=== PATIENT | female | born 1950 | race Caucasian/White ===

== ENCOUNTER 2016-05-29 19:45 | Emergency (ER) | payer MEDICARE ==
[~2016-05-29 19:45] MED LIST: LEVAQUIN500 MG PO; PYRIDIUM100 MG PO
[2016-05-29 20:07] LABS: HEMOGLOBIN 13.5 gm/dl (12.3-15.3); RED BLOOD COUNT 4.63 M/UL (4.00-5.10); WHITE BLOOD COUNT 15.9 K/UL (4.5-11.0)
[2016-05-29 21:31] LABS: BUN/CREATININE RATIO 33 (0-10)
[2016-12-15] MEDS ORDERED: SYNTHROID150 MCG PO (14:19)
[2016-12-15] MEDS ORDERED: LIORESAL TAB 1010 MG PO (14:20)
[2016-12-15] MEDS ORDERED: PROTONIX40 MG PO (14:20)
[2016-12-15] MEDS ORDERED: NAPROXEN500 MG PO (14:21)
[2016-12-15] MEDS ORDERED: DULOXETINE HCL30 MG PO (14:22)
[2016-12-15] MEDS ORDERED: DICYCLOMINE HCL20 MG PO (14:23)
[2016-12-15] MEDS ORDERED: PHENERGAN 12.12.5 M1 PO (14:24)
[2016-12-17] MEDS ORDERED: KEFLEX CAP 500500 MG PO (11:12)
[2016-12-17] MEDS ORDERED: NYSTATIN1 EAC1 PO ×2 (11:13→11:17)
== END 2016-05-30 05:00 | disposition home or self-care (01) ==
LOC: ER1 19:45
PROVIDERS: Student in an Organized Health Care Education/Training Program
DX: J44.1 Chronic obstructive pulmonary disease with (acute) exacerbation (principal); N39.0 Urinary tract infection, site not specified; R11.2 Nausea with vomiting, unspecified; J45.909 Unspecified asthma, uncomplicated; E66.9 Obesity, unspecified; F17.210 Nicotine dependence, cigarettes, uncomplicated; Z88.5 Allergy status to narcotic agent; Z90.49 Acquired absence of other specified parts of digestive tract; Z99.81 Dependence on supplemental oxygen; Z79.899 Other long term (current) drug therapy
CPT/HCPCS: 36415; 71010; 80053; 81001; 82550; 82553; 83605; 83690; 83874; 83880; 84484; 85025; 87040; 87086; 93005; 94664; 96361; 96365; 96375; 96376; 99285; J0696; J2405; J2550; J7030; J7040; J7050; Q9962

== ENCOUNTER 2016-08-06 02:00 | Emergency (ER) | payer MEDICARE ==
[2016-08-06 03:03] LABS: HEMOGLOBIN 13.2 gm/dl (12.3-15.3); RED BLOOD COUNT 4.63 M/UL (4.00-5.10); WHITE BLOOD COUNT 8.5 K/UL (4.5-11.0)
[2016-08-06 03:25] LABS: BUN/CREATININE RATIO 22 (0-10)
[2016-12-15] MEDS ORDERED: SYNTHROID150 MCG PO (14:19)
[2016-12-15] MEDS ORDERED: PROTONIX40 MG PO (14:20)
[2016-12-15] MEDS ORDERED: LIORESAL TAB 1010 MG PO (14:20)
[2016-12-15] MEDS ORDERED: NAPROXEN500 MG PO (14:21)
[2016-12-15] MEDS ORDERED: DULOXETINE HCL30 MG PO (14:22)
[2016-12-15] MEDS ORDERED: DICYCLOMINE HCL20 MG PO (14:23)
[2016-12-15] MEDS ORDERED: PHENERGAN 12.12.5 M1 PO (14:24)
[2016-12-17] MEDS ORDERED: KEFLEX CAP 500500 MG PO (11:12)
[2016-12-17] MEDS ORDERED: NYSTATIN1 EAC1 PO ×2 (11:13→11:17)
== END 2016-08-06 07:25 | disposition home or self-care (01) ==
LOC: ER1 02:00
PROVIDERS: Student in an Organized Health Care Education/Training Program
DX: J44.0 Chronic obstructive pulmonary disease with (acute) lower respiratory infection (principal); J20.9 Acute bronchitis, unspecified; F17.210 Nicotine dependence, cigarettes, uncomplicated; E03.9 Hypothyroidism, unspecified; Z88.5 Allergy status to narcotic agent; Z90.49 Acquired absence of other specified parts of digestive tract
CPT/HCPCS: 36415; 71010; 80053; 82550; 82553; 83874; 83880; 84484; 85025; 85379; 93005; 94664; 99284

== ENCOUNTER 2016-08-25 17:42 | Emergency (ER) | payer MEDICARE ==
[2016-08-25 20:36] LABS: HEMOGLOBIN 13.3 gm/dl (12.3-15.3); RED BLOOD COUNT 4.7 M/UL (4.00-5.10); WHITE BLOOD COUNT 9.9 K/UL (4.5-11.0)
[2016-08-25 21:50] LABS: BUN/CREATININE RATIO 24 (0-10)
[2016-12-15] MEDS ORDERED: SYNTHROID150 MCG PO (14:19)
[2016-12-15] MEDS ORDERED: LIORESAL TAB 1010 MG PO (14:20)
[2016-12-15] MEDS ORDERED: PROTONIX40 MG PO (14:20)
[2016-12-15] MEDS ORDERED: NAPROXEN500 MG PO (14:21)
[2016-12-15] MEDS ORDERED: DULOXETINE HCL30 MG PO (14:22)
[2016-12-15] MEDS ORDERED: DICYCLOMINE HCL20 MG PO (14:23)
[2016-12-15] MEDS ORDERED: PHENERGAN 12.12.5 M1 PO (14:24)
[2016-12-17] MEDS ORDERED: KEFLEX CAP 500500 MG PO (11:12)
[2016-12-17] MEDS ORDERED: NYSTATIN1 EAC1 PO ×2 (11:13→11:17)
== END 2016-08-26 03:55 ==
LOC: ER1 17:42
PROVIDERS: Family Medicine
DX: L03.311 Cellulitis of abdominal wall (principal); J44.9 Chronic obstructive pulmonary disease, unspecified; F17.200 Nicotine dependence, unspecified, uncomplicated
CPT/HCPCS: 36415; 80053; 81001; 82150; 83690; 85025; 94640; 94664; 96374; 96376; 99285; J2270; J2405; J7050; Q9962